=== PATIENT | male | born 1965 | race Caucasian/White ===

== ENCOUNTER 2016-05-29 13:48 | Emergency (ER) | payer OTHER ==
[~2016-05-29] VITALS: Ht 175.3 cm; Wt 113.4 kg
[2016-05-29 14:50] LABS: Basophils # (auto) 0 uL; Basophils % (auto) 0.4 % (0.0-2.0); Eosinophils # (auto) 0.3 uL; Eosinophils % (auto) 3.4 % (0.0-7.0); Hematocrit 46.8 % (41.0-53.0); Hemoglobin 15.5 g/dL (13.5-17.5); Lymphocytes # (auto) 1.5 uL; Lymphocytes % (auto) 19.5 % (10.0-50.0); Mean Corpuscular Hemoglobin 29.2 pg (28.0-32.0); Mean Corpuscular Hgb Conc. 33.2 g/dL (32.0-36.0); Mean Corpuscular Volume 87.9 fL (80.0-100.0); Mean Platelet Volume 7.9 fL (7.4-10.4); Monocytes # (auto) 0.7 uL; Monocytes % (auto) 8.8 % (0.0-12.0); Neutrophils # (auto) 5.4 uL; Neutrophils % (auto) 67.9 % (37.0-80.0); Platelet Count (auto) 267 10^3/uL (140-450); Red Cell Distribution Width 13.2 % (11.6-16.0); White Blood Cell 7.9 10^3/uL (4.4-10.8)
[2016-05-29 15:06] LABS: Albumin 3.7 g/dL (3.4-5.0); Magnesium 2.2 mg/dL (1.6-2.6); Potassium 3.7 mmol/L (3.5-5.1)
[2016-05-29 15:08] LABS: BUN/Creatinine Ratio 18.3
[2016-05-29 15:13] LABS: Bilirubin, Total 0.2 mg/dL (0.2-1.0); Total Protein 7.2 g/dL (6.4-8.2)
[2016-05-29 18:12] LABS: Urine Bilirubin Negative (Negative); Urine Blood Negative /uL (Negative); Urine Color Yellow (Yellow); Urine Glucose Normal (Normal); Urine Ketone Negative (Negative); Urine Nitrite Negative (Negative); Urine RBC <1 /hpf (0 - 3); Urine Urobilinogen Normal (Negative)
[2016-05-29 19:37] VITALS: BP 128/82
[2016-05-29] MEDS ORDERED: ENOXAPARIN SOD 120 MG/0.8 ML SYRINGE SC ONE (20:00)
[2016-05-29] MEDS ORDERED: ASPirin 81 mg TAB PO ONE (20:00)
[2016-05-29] MEDS ORDERED: NITROGLYCERIN 0.2MG/HR TOPICAL PATCH TD ONE (20:15)
== END 2016-05-29 20:46 | disposition short-term general hospital (02) ==
LOC: ER 13:48
DX: R00.2 Palpitations (principal); R06.02 Shortness of breath; R79.89 Other specified abnormal findings of blood chemistry; I48.91 Unspecified atrial fibrillation; E11.9 Type 2 diabetes mellitus without complications; E78.5 Hyperlipidemia, unspecified; I10 Essential (primary) hypertension; I25.2 Old myocardial infarction; Z79.82 Long term (current) use of aspirin
CPT/HCPCS: 36415; 71010; 80053; 81001; 83735; 84484; 85025; 93005; 94761; 96372; 99285; J1650